=== PATIENT | male | born 1980 | race Two or more races ===

== ENCOUNTER 2018-02-06 07:30 | Inpatient (IN) | payer OTHER ==
[~2018-02-06] VITALS: Ht 193 cm; Wt 131.7 kg
[2018-02-06] VITALS (10 sets, daily range): BP systolic 114–152; BP diastolic 67–94
[~2018-02-06 07:30] MED LIST: ceFAZolin sod 2 GM in D5W 110 ML IVPB ONE
[2018-02-06] MEDS ORDERED: NKM (09:15)
[2018-02-06] MEDS ORDERED: LR 1000ml 1,000 ML IVLG SCH (09:40)
[2018-02-06] MEDS ORDERED: Metoclopramide 10mg/2ml Inj IVP PRN (09:45)
[2018-02-06] MEDS ORDERED: LORazepam Inj 2mg/ml 1ml IV PRN (09:45)
[2018-02-06] MEDS ORDERED: Labetalol 5mg/ml 20ml vial IV PRN (09:45)
[2018-02-06] MEDS ORDERED: Hydromorphone 0.5mg/0.5ml inj IVP PRN (09:45)
[2018-02-06] MEDS ORDERED: Ketorolac 30mg Inj IV PRN ×2 (09:45)
[2018-02-06] MEDS ORDERED: HYDROcodone/Acetamin 7.5/325 tab ORAL PRN ×3 (09:45→17:30)
[2018-02-06] MEDS ORDERED: Midazolam 2mg/2ml Inj IVP PRN (09:45)
[2018-02-06] MEDS ORDERED: fentaNYL 100 mcg/2 mL IV PRN (09:45)
[2018-02-06] MEDS ORDERED: oxyCODONE HCL/Acetaminophen 5/325mg ORAL PRN (09:45)
[2018-02-06] MEDS ORDERED: DiphenhydrAMINE 50mg/ml Inj IVP PRN (09:45)
[2018-02-06] MEDS ORDERED: Norco 5mg/325mg tab ORAL PRN ×2 (09:45→17:30)
[2018-02-06] MEDS ORDERED: Atropine Inj 1mg/10ml Syr IV PRN (09:45)
[2018-02-06] MEDS ORDERED: Acetaminophen (Non formulary) 100 ML IV ONE (09:45)
--- NOTE | 2018-02-06 09:45 | Anethesia Preoperative Eval ---
Anesthesia Pre-op PMH/ROS General Date of Evaluation: Feb 06, 2018 Time of Evaluation: 15:02 Anesthesiologist: Migel ASA Score: ASA 2 Mallampati Score Class I : Soft palate, uvula, fauces, pillars visible Class II: Soft palate, uvula, fauces visible Class III: Soft palate, base of uvula visible Class IV: Only hard plate visible Mallampati Classification: Class III Surgeon: Nery Diagnosis: Back Pain Surgical Procedure: L3-4, L4-5 Laminectomy, Foraminotomy, Discectomy Anesthesia History: none Family History: no anesthesia problems Allergies: Coded Allergies: Pork (Verified Allergy, Severe, 02/06/18) HIVES,DIARRHEA,FACIAL SWELLLING AND THROAT CLOSES UP AND VOMITING Medications: see eMAR Past Medical History Cardiovascular: Reports: HTN Pulmonary: Reports: other - Bronchitis Neurologic/Psychiatric: Reports: depression/anxiety Other: obesity - BMI 37 Anesthesia Pre-op Phys. Exam Physician Exam Last Vital Signs Date Time Temp Pulse Resp B/P (MAP) Pulse Ox O2 Delivery O2 Flow Rate FiO2 02/06/18 09:31 97.4 75 20 125/67 (86) 97 97.4 02/06/18 09:16 Room Air Constitutional: NAD Neurologic: CN 2-12 intact Cardiovascular: RRR Respiratory: CTA Gastrointestinal: S/NT/ND Airway Exam Mallampati Score: Class III MO: full ROM: full Teeth: intact Anesthesia Pre-op A/P Risk Assessment & Plan Assessment: ASA 2 Plan: GA, BIS, GlideScope Status Change Before Surgery: No Pre-Antibiotics Dru Grams Ancef IV Given Within 1 Hr of Incision: Yes Time Given: 11:51 Av Lainez MD Feb 06, 2018 09:45
--- NOTE | 2018-02-06 09:51 | Immediate Post-Op Evaluation ---
Immediate Post-Op Evalulation Immediate Post-Op Evalulation Procedure: L3-4, L4-5 Laminectomy, Foraminotomy, Discectomy Date of Evaluation: Feb 06, 2018 Time of Evaluation: 15:02 IV Fluids: 1000 LR Blood Products: 0 Estimated Blood Loss: 100 Urinary Output: 450 Blood Pressure Systolic: 148 Blood Pressure Diastolic: 92 Pulse Rate: 93 Respiratory Rate: 16 O2 Sat by Pulse Oximetry: 99 Temperature (Fahrenheit): 98.2 Pain Score (1-10): 3 Nausea: No Vomiting: No Complications 0 Patient Status: awake, reacts, patent, extubated, none Hydration Status: adequate Dru Grams Ancef IV Given Within 1 Hr of Incision: Yes Time Given: 11:51 Av Lainez MD Feb 06, 2018 09:51
[2018-02-06] MEDS ORDERED: Lidocaine 1% MPF 10mg/ml 5ml ONE (10:11)
[2018-02-06] MEDS ORDERED: Sodium Chloride 10ml vial INJ ONE ×2 (10:11→12:28)
[2018-02-06] MEDS ORDERED: Dexamethasone 4mg/ml vial ONE (10:11)
[2018-02-06] MEDS ORDERED: fentaNYL 100 mcg/2 mL IV ONE ×3 (10:12→14:01)
[2018-02-06] MEDS ORDERED: Lidocaine 1% Plain 30 ml INJ ONE ×2 (10:21→13:33)
--- NOTE | 2018-02-06 10:55 | Pre-Procedure Note/Attestation ---
Pre-Procedure Note/Attestation Complete Prior to Procedure Procedure Narrative: L345 Laminoforaminotomy and discectomy Indications for Procedure Pre-Operative Diagnosis: Spinal stenosis L345 Attestation I attest that I discussed the nature of the procedure; its benefits; risks and complications; and alternatives (and the risks and benefits of such alternatives ), prior to the procedure, with the patient (or the patient's legal support representative). I attest that, if there was a reasonable possibility of needing a blood transfusion, the patient (or the patient's legal support representative) was given the [facility] standardized written summary, pursuant to the Nikos Adeline Blood Safety Act ([place] Health and Safety Code # 1645, as amended). I attest that I re-evaluated the patient just prior to the surgery and that there has been no change in the patient's H&P, except as documented below: Scott Gabriel MD Feb 06, 2018 10:55
--- NOTE | 2018-02-06 11:05 | Brief Operative Note ---
Immediate Post Operative Note Operative Note Pre-op Diagnosis: Spinal stenosis L345 Procedure: L345 B laminoforaminotomy and discectomy Post-op Diagnosis: same as pre-op Findings: consistent w/pre-op dx studies Surgeon: edel [employer] Instructor: autumn rizzo Anesthesiologist: Danny Anesthesia: general Specimen: yes Complications: none Condition: stable Fluids: 1L Estimated Blood Loss: volume Drains: none Implant(s) used?: No Scott Gabriel MD Feb 06, 2018 11:05
[2018-02-06] MEDS ORDERED: Lidocaine 1% 10mg/ml/Epi 0.005mg/ml 30ml vial INJ ONE (11:28)
[2018-02-06] MEDS ORDERED: Thrombin 5000 units TOPIC ONE (11:28)
[2018-02-06] MEDS ORDERED: Vancomycin 1gm inj IVPB ONE (11:28)
[2018-02-06] MEDS ORDERED: Bacitracin 50000 Units Vial ONE (11:29)
[2018-02-06] MEDS ORDERED: Zemuron 50mg/5ml Inj IV ONE (11:30)
[2018-02-06] MEDS ORDERED: LR 1000ml ONE (11:30)
[2018-02-06] MEDS ORDERED: NS Irrig 1000ml ONE (11:30)
[2018-02-06] MEDS ORDERED: Propofol 1,000mg/ 100ml btl IV ONE (11:30)
[2018-02-06] MEDS ORDERED: Sterile Water Irrig 1000ml IRRIG ONE (11:30)
[2018-02-06] MEDS ORDERED: Gelfoam Absorbable 1gm powder pkt TOPIC ONE (13:57)
[2018-02-06] MEDS ORDERED: Neostigmine 1mg/ml 10ml Inj ONE (14:01)
[2018-02-06] MEDS ORDERED: Glycopyrrolate 0.2mg/ml 1ml Vial ONE (14:01)
[2018-02-06] MEDS ORDERED: Naloxone 0.4mg/ml Inj ONE (14:12)
[2018-02-06] MEDS ORDERED: traMADol 50mg tab ORAL PRN (14:15)
--- NOTE | 2018-02-06 16:00 | Diagnostic Imaging Report ---
. Indication: Back pain Comparison: None Findings: Single crosstable lateral view of the lumbar spine obtained fluoroscopically. Total fluoroscopic time 13.1 seconds. Images show the segmentation posterior to L5. IMPRESSION: Intraoperative imaging
[2018-02-06] MEDS: D5 1/2NS 1,000 ML IV SCH (17:23)
[2018-02-06] MEDS ORDERED: Milk of Magnesia 30ml Ud ORAL PRN (17:30)
[2018-02-06] MEDS ORDERED: HYDROmorphone 1mg/ml Carpuject SUBQ PRN (17:30)
[2018-02-06] MEDS ORDERED: Docusate 100mg cap ORAL SCH (18:00)
--- NOTE | 2018-02-06 19:00 | Operative Note - Dictated ---
DATE OF OPERATION: 02/06/2018 PREOPERATIVE DIAGNOSES: 1. Spinal stenosis, L3-4 and L4-5. 2. Broad-based disc protrusions, L3-4 right side and L4-5 central and bilateral. POSTOPERATIVE DIAGNOSES: 1. Spinal stenosis, L3-4 and L4-5. 2. Broad-based disc protrusions, L3-4 right side and L4-5 central and bilateral. 3. 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 OPERATION PERFORMED: 1. Right-sided hemilaminectomy at L3, L4, superior portion of L5. 2. Hemilaminectomy, left side L3, L4, L5. 3. Foraminotomy, L3-4 and L4-5 bilaterally. 4. Lysis of adhesions bilaterally, L3-4 and L4-5. 5. Microdiskectomy, right side, L3-4/L4-5. 6. Neurodiagnostic monitoring. 7. Use of fluoroscopy. 8. Use of operating microscope. INDICATIONS: The patient is a very pleasant gentleman with chronic mechanical back pain as well as radiculopathy in the lower extremities bilaterally. Conservative care had failed. Surgical intervention was recommended. The patient elected to proceed with surgery. INTRAOPERATIVE FINDINGS: 1. Hypermobility at the L3-4 and L4-5 levels. 2. Chronic inflammatory changes, L3-4 and L4-5. 3. Epidural lipomatosis, L3-4 and L4-5. RISK NOTE: The patient was explained in detail of risks and benefits of surgery to include, but not be limited to those of bleeding, infection, damage to nerves, vessels, tendons, anesthetic risk, allergic reaction, possible need for reoperation, possible need for fusion. The patient elected to proceed. OPERATIVE PROCEDURE IN DETAIL: The patient was taken to the operative suite. After general endotracheal anesthesia was obtained, [place] catheter was placed. The patient was positioned supine on to the [place] frame. All bony prominences were well padded. [place] were placed at L4-L5 and radiographically, this was confirmed. At this point, skin was infiltrated with Marcaine with epinephrine. Incision was made from L3 to L5, and subperiosteal dissection carried out bilaterally. Fluoroscopic confirmation of the L4-5 lamina was obtained. The left side was first addressed. Self-retaining retractors were put into place. Under microscopic visualization, hemilaminectomy was performed using high-speed drill of the L4 and superior portion of L5. Ligamentum flavum was removed in a piecemeal fashion. The dural sac was noted to be markedly scarified with extensive epidural lipomatosis as well as chronic inflammatory changes. The decompression was achieved using a combination of high-speed drill as well as curved curettes and Kerrison punches. Once satisfied with the laminotomy and foraminotomy on the left side, this procedure was identically performed on the right side as well. At this point, the retractor was moved and brought up to the L3-4 level. In an identical fashion, laminectomy on the left side of L3 and superior portion of L4 was performed. Ligamentum flavum was removed in a piecemeal fashion. Neural foraminotomy was performed. Attention was then turned to the right side at L3-4. In an identical fashion, hemilaminotomy was performed using high-speed drill, curved curettes, Kerrison punch. Ligamentum flavum was removed in a piecemeal fashion. The nerve root was gently mobilized medially. Disc space was identified and a small annulotomy was performed. The Elizabeth instrument was used to remove pieces of intradiscal fragments. Once satisfied with the decompression intradiscally, copious intradiscal irrigation was performed. Meticulous hemostasis was performed using bipolar copious irrigation. FloSeal was applied. Attention was then turned to the L4-L5 level, and right-sided reno-diskectomy was performed in a similar fashion, as was at the L3-4 level. Please note that extensive neovascularization and chronic inflammatory changes of the epidural space was noted, which required meticulous neurolysis, mobilization of nerve roots, and cauterization of the epidural veins. At this point, once satisfied with the decompressions, copious irrigation was performed. Valsalva was performed without CSF leak. Due to the patient's morbid obesity, a gram of vancomycin was placed deep to the fascia. A medium-sized Hemovac drain was also placed deep to the fascia. Fascia was repaired using #1 Vicryl, subcutaneous closure using 2-0 Vicryl, Dermabond was applied. Sterile dressing was applied. At the time of this dictation, the patient was awaiting extubation. Sponge and needle counts were correct. Scott Darleen Gabriel DR: APPLE JOB#: [id number] CC:
[2018-02-06] MEDS ORDERED: HYDROcodone/Acetamin 10/325 tab ORAL PRN (19:15)
[2018-02-06] MEDS ORDERED: Cyclobenzaprine 10mg Tab ORAL PRN (20:00)
[2018-02-06] MEDS ORDERED: Chloraseptic Spray 20mL Bottle ORAL PRN (20:30)
[2018-02-06] MEDS: ceFAZolin sod 1 GM in D5W 110 ML IV SCH (20:58)
[2018-02-06] MEDS: Tamsulosin 0.4mg cap ORAL SCH (20:58)
[2018-02-06] MEDS: HYDROmorphone 1mg/ml Carpuject SUBQ PRN (20:59)
[2018-02-07 00:18] VITALS: BP 118/68
[2018-02-07] MEDS: HYDROmorphone 1mg/ml Carpuject SUBQ PRN ×5 (00:18→21:12)
[2018-02-07] MEDS: D5 1/2NS 1,000 ML IV SCH ×2 (01:49→15:00)
--- NOTE | 2018-02-07 03:00 | Consultation ---
DATE OF CONSULTATION: 02/06/2018 CONSULTING PHYSICIAN: Wilfred Lopez M.D. REFERRING PHYSICIAN: Scott Gabriel M.D. REASON FOR CONSULTATION: Acute pain consult. DEAR DR. SCOTT GABRIEL: Thank you kindly for consulting me to evaluate and render an opinion as to how to proceed in the management of this patient's acute postoperative lumbar spine pain after a lumbar spine surgery today. The patient is a massively obese 37-year-old gentleman, who I saw at the bedside on your request. The patient complains of significant discomfort after his work-related injury and lumbar spine surgery today. I saw the patient at bedside. I performed detailed history and physical examination. I spent over 75 minutes in consultation with an additional 30 minutes in medical record review. I reviewed multiple records from today's date of surgery at [facility] starting with utilization review and surgical authorization by [facility] utilization review authorizing surgery as certified. Multiple records were reviewed including preoperative history and physical by Osmar Cox dated January 26, 2018 along with diagnostic testing and laboratory studies, 12-lead EKG. Multiple records were reviewed from today's date of surgery at [facility], dated February 06, 2018 including consent for surgical treatment, consent for anesthesia, consent for blood products, medication administration record, medication reconciliation order form, anesthesia record, pre-anesthesia and post-anesthesia evaluation record, PACU record, PACU orders, postoperative spine surgery orders, and postoperative surgery report by Dr. Gabriel, surgical invasive procedure check list, intraoperative nursing care plan of care, 24-hour medical/surgical flow sheet, guidelines for prophylactic antibiotics, guidelines for DVT prophylaxis. Further records reviewed include laboratory studies from January 26, 2018. PAST MEDICAL HISTORY: 1. Acute postoperative lumbar spine pain, status post lumbar spine surgery by Dr. Scott Gabriel in January 2018. 2. Work-related injury. 3. Massive obesity. PAST SURGICAL HISTORY: Left shoulder surgery in 2013. MEDICATIONS: At home, tramadol, Welches, Flexeril. SOCIAL HISTORY: The patient is accompanied at the bedside by his girlfriend and extensive family providing good social support. The patient quit tobacco over 5 years ago. The patient denies alcohol usage. ALLERGIES: Pork food causes anaphylaxis. No known drug allergies. FAMILY HISTORY: Hypertension, diabetes, asthma, obesity, coronary artery disease. REVIEW OF SYSTEMS: Per attending physician. PHYSICAL EXAMINATION: VITAL SIGNS: Age 37, height 6 feet 4 inches, weight 297 pounds, body-mass index 36. Afebrile, pulse 93, respirations 22, blood pressure 139/86, and oxygen saturation 97% on supplemental oxygen. HEENT: Nasal cannula oxygen in place. NEUROLOGIC: Moving all extremities x4, 5/5 dorsiflexion, 5/5 plantar flexion in bilateral lower extremities. BACK: Lumbar spine with significant pain with log-rolling. Hemovac drain holding suction. Straight leg raising and detailed neurologic exam deferred to Dr. Gabriel. CHEST: Barrel-chested. Bibasilar crackles likely secondary to postoperative atelectasis and preoperative obesity. ABDOMEN: Obese. Positive bowel sounds. Positive pannus. No rebound or guarding. GENITOURINARY: Deferred. DIAGNOSTIC TESTING: Shows 12-lead EKG with normal sinus rhythm, ventricular rate 57, no evidence for acute cardiac ischemia. Laboratory studies from January 26, 2018, shows glucose 99, sodium 138, potassium 4.1, chloride 100, bicarbonate 27, BUN 13, creatinine 0.9, calcium 9.7, phosphorus 3.9, total protein 7.5, albumin 4.5, AST 24, ALT 45, alkaline phosphatase 54, LDH 146, total bilirubin 0.7, magnesium 2.1, amylase 46. TSH 2.0. Glycosylated hemoglobin normal at 4.0. White count 6, hematocrit illegible, platelets 327,000. INR 1.1, PTT 29. IMPRESSION: 1. Acute postoperative lumbar spine pain, status post lumbar spine surgery by Dr. Scott Gabriel in January 2018. 2. Work-related injury. 3. Massive obesity. TREATMENT RECOMMENDATIONS: I have set up a treatment plan. The patient states that after his left shoulder surgery, he did tolerate hydrocodone with moderate efficacy. I will start him on a dose of Welches 10/325 one tablet orally every three hours p.r.n. for moderate pain. He has tolerated Dilaudid so far in the hospital without any adverse side effects such as nausea. Due to his extreme obesity and possibility for respiratory compromise with obstructive sleep apnea symptoms, I have ordered the subcutaneous route for breakthrough dose of Dilaudid 1 mg every three hours p.r.n. for severe breakthrough pain. I have ordered Flexeril 10 mg orally every 8 hours p.r.n. as a muscle relaxant agent. The patient does not appear to be anxious, so I am going to hold off on the class of benzodiazepines at this time to avoid the potentiation of respiratory depression, which may occur when already being on potent opioid agonist. I have ordered p.r.n. dose of Fioricet one tablet orally every 8 hours in case of any headache symptoms. I have asked nursing team to place Chloraseptic spray at the bedside in case of any sore throat complaints. In case the patient has any itching problems, I have ordered Benadryl 25 mg q.6 hours p.r.n. In case of any nausea symptoms, I have ordered Zofran 4 mg intravenously every 4 hours p.r.n. I will empirically place the patient on Protonix 40 mg nightly for GI ulcer prophylaxis. I have also ordered p.r.n. dose of Mylanta 30 mL q.6 hours in case of any GERD symptom exacerbation. I have ordered one-time dose of Flomax to help reduce the risk for urinary retention issues which may develop while resting in supine position after back surgery. The patient does seem to have borderline high blood pressure readings. This may be due to a blood pressure cuff being of the small size. I have added p.r.n. dose of clonidine 0.1 mg in case of systolic blood pressure greater than 160 [address] I will also place the patient on Colace as a stool softener. P.r.n. dose of milk of magnesia is available as a rescue laxative. I did encourage incentive spirometer usage to encourage good pulmonary toilet. This patient certainly is at risk for postoperative pneumonia and atelectasis with his history of smoking in the past along with his massive obesity. I will leave a prescription for Welches and Flexeril for outpatient usage. Wilfred Lopez M.D. DR: Pauline JOB#: [id number] CC:
[2018-02-07 04:02] VITALS: BP 125/72
[2018-02-07] MEDS: ceFAZolin sod 1 GM in D5W 110 ML IV SCH ×2 (04:03→11:46)
[2018-02-07 07:48] LABS: BASOPHILS % (AUTO) 0.3 % (0.0-2.0); EOSINOPHILS % (AUTO) 0.1 % (0.0-3.0); HEMATOCRIT 37.3 % (42.0-52.0); HEMOGLOBIN 13.4 G/DL (14.2-18.0); LYMPHOCYTES % (AUTO) 8.4 % (20.0-45.0); MEAN CORPUSCULAR VOLUME 83 FL (80-99); NEUTROPHILS % (AUTO) 84.2 % (45.0-75.0); PLATELET COUNT 317 K/UL (150-450); RED BLOOD COUNT 4.48 M/UL (4.70-6.10); RED CELL DISTRIBUTION WIDTH 11.2 % (11.6-14.8); WHITE BLOOD COUNT 12.9 K/UL (4.8-10.8)
[2018-02-07 08:00] VITALS: BP 127/71
[2018-02-07] MEDS: Docusate 100mg/10ml Liq NG SCH ×2 (08:04→18:47)
--- NOTE | 2018-02-07 08:08 | 48 Hour Post Anesthesia Eval ---
Post Anesthesia Evaluation Procedure: L3-4, L4-5 Laminectomy, Foraminotomy, Discectomy Date of Evaluation: Feb 07, 2018 Time of Evaluation: 06:50 Blood Pressure Systolic: 125 0: 72 Pulse Rate: 87 Respiratory Rate: 16 Temperature (Fahrenheit): 97.4 O2 Sat by Pulse Oximetry: 97 Airway: patent Nausea: No Vomiting: No Pain Intensity: 0 Hydration Status: adequate Cardiopulmonary Status: at baseline Mental Status/LOC: patient returned to baseline Post-Anesthesia Complications: 0 Follow-up care needed: N/A - further care as per primary team Olivia Mora MD Feb 07, 2018 08:08
[2018-02-07] MEDS ORDERED: D5 1/2NS 1000ml IV ONE (08:49)
[2018-02-07 12:00] VITALS: BP 124/76
--- NOTE | 2018-02-07 15:02 | History and Physical ---
History of Present Illness General Date patient seen: Feb 07, 2018 Present Illness HPI 37 year old male with hx of depression and anxiety admitted with dx of Spinal stenosis L3-4-5 and underwent L3-4-5 B laminoforaminotomy and discectomy. Post operatively pt is admitted to surgical floor for further management. Allergies: Coded Allergies: Pork (Verified Allergy, Severe, 02/06/18) HIVES,DIARRHEA,FACIAL SWELLLING AND THROAT CLOSES UP AND VOMITING Medication History Scheduled No Known Medications* (NKM - No Known Medications*), 0 ., (Reported) Patient History Healthcare decision maker CHRISTOPHER MARTINEZ-GIRLFRIEND Resuscitation status Full Code Advanced Directive on File Past Medical/Surgical History Past Medical/Surgical History: (1) Spinal stenosis Review of Systems All Other Systems: negative except mentioned in HPI Physical Exam General Appearance: WD/WN Lines, tubes and drains: peripheral HEENT: normocephalic, atraumatic Neck: non-tender, normal alignment, supple Respiratory/Chest: chest wall non-tender, normal breath sounds Breasts: no masses Cardiovascular/Chest: normal peripheral pulses Abdomen: normal bowel sounds, soft Genitourinary/Rectal: normal genital exam Extremities: normal range of motion Last 24 Hour Vital Signs Date Time Temp Pulse Resp B/P (MAP) Pulse Ox O2 Delivery O2 Flow Rate FiO2 02/07/18 12:00 98.5 88 20 124/76 (92) 98 98.5 02/07/18 08:46 Room Air 02/07/18 08:08 207.3 87 16 97 02/07/18 08:00 97.8 82 20 127/71 (89) 98 97.8 02/07/18 04:02 97.4 87 16 125/72 (89) 97 97.4 02/07/18 00:18 97.4 90 20 118/68 (85) 96 97.4 02/06/18 21:00 Room Air 02/06/18 20:26 97.3 95 18 114/70 (85) 96 97.3 02/06/18 18:03 98.5 02/06/18 17:33 98.5 02/06/18 17:09 Nasal Cannula 3.0 02/06/18 16:02 98.5 02/06/18 16:00 98.5 93 22 139/86 97 Nasal Cannula 3 98.5 02/06/18 15:45 84 15 138/88 97 Nasal Cannula 3 02/06/18 15:32 80 16 129/91 97 Nasal Cannula 3 02/06/18 15:32 98.3 02/06/18 15:25 77 18 137/94 97 Nasal Cannula 3 02/06/18 15:10 91 13 148/83 98 Simple Mask 6.0 02/06/18 15:00 84 13 152/81 98 Simple Mask 6.0 Intake and Output 02/06/18 02/07/18 19:00 07:00 Intake Total 1700 ml 860 ml Output Total 640 ml Balance 1060 ml 860 ml Intake Oral 400 ml 860 ml IV Total 1300 ml Output Urine Total 450 ml Stool Total 0 ml Drainage Total 90 ml Estimated Blood Loss 100 ml # Voids 2 Laboratory Tests Test 02/07/18 06:50 White Blood Count 12.9 K/UL (4.8-10.8) H Red Blood Count 4.48 M/UL (4.70-6.10) L Hemoglobin 13.4 G/DL (14.2-18.0) L Hematocrit 37.3 % (42.0-52.0) L Mean Corpuscular Volume 83 FL (80-99) Mean Corpuscular Hemoglobin 30.0 PG (27.0-31.0) Mean Corpuscular Hemoglobin Concent 36.0 G/DL (32.0-36.0) Red Cell Distribution Width 11.2 % (11.6-14.8) L Platelet Count 317 K/UL (150-450) Mean Platelet Volume 6.5 FL (6.5-10.1) Neutrophils (%) (Auto) 84.2 % (45.0-75.0) H Lymphocytes (%) (Auto) 8.4 % (20.0-45.0) L Monocytes (%) (Auto) 7.0 % (1.0-10.0) Eosinophils (%) (Auto) 0.1 % (0.0-3.0) Basophils (%) (Auto) 0.3 % (0.0-2.0) Height (Feet): 6 Height (Inches): 4.00 Weight (Pounds): 293 Medications Current Medications Medications (Trade) Dose Ordered Sig/Leyla Route PRN Reason Start Time Stop Time Status Last Admin Dose Admin Acetaminophen (Tylenol) 650 mg Q4H PRN ORAL headache or temp>101 02/06/18 17:30 03/08/18 17:29 Acetaminophen/ Butalbital/ Caffeine (Fioricet) 1 tab Q8H PRN ORAL headache 02/06/18 19:15 03/08/18 19:14 Acetaminophen/ Hydrocodone Bitart ([place] 10/325) 1 tab Q3H PRN ORAL Moderate Pain (Pain Scale 4-6) 02/06/18 19:15 02/13/18 19:14 Al Hydroxide/Mg Hydroxide (Mylanta) 30 ml Q6H PRN ORAL gerd/dyspepsia 02/06/18 19:15 03/08/18 19:14 02/07/18 08:04 Clonidine HCl (Catapres Tab) 0.1 mg Q8HR PRN ORAL SBP > 160mmHg 02/06/18 19:15 03/08/18 19:14 Cyclobenzaprine HCl (Flexeril) 10 mg Q8H PRN ORAL Muscle Spasm 02/06/18 20:00 03/08/18 19:59 Dextrose/Sodium Chloride 1,000 ml @ 100 mls/hr Q10H IV 02/06/18 17:30 03/08/18 17:29 02/07/18 01:49 Diphenhydramine HCl (Benadryl) 25 mg Q6H PRN ORAL Itching 02/06/18 19:15 03/08/18 19:14 Docusate Sodium (Colace) 100 mg TWICE A DAY NG 02/07/18 09:00 03/09/18 08:59 02/07/18 08:04 Hydromorphone HCl (Dilaudid) 1 mg Q3H PRN SUBQ Severe Breakthru Pain (>7) 02/06/18 19:15 02/13/18 19:14 02/07/18 11:46 Magnesium Hydroxide (Mom) 30 ml QIDPRN PRN ORAL Constipation 02/06/18 17:30 03/08/18 17:29 Ondansetron HCl (Zofran) 4 mg Q4H PRN IVP Nausea & Vomiting 02/06/18 19:15 03/08/18 19:14 Pantoprazole (Protonix) 40 mg BEDTIME ORAL 02/06/18 21:00 03/08/18 20:59 02/06/18 20:58 Phenol/Menthol (Chloraseptic) 1 spray Q3H PRN ORAL sore throat 02/06/18 20:30 03/08/18 20:29 Tamsulosin HCl (Flomax) 0.4 mg BEDTIME ORAL 02/06/18 21:00 03/08/18 20:59 02/06/18 20:58 Temazepam (Restoril) 15 mg HSPRN PRN ORAL Insomnia 02/06/18 21:00 02/13/18 20:59 02/06/18 23:36 Assessment/Plan Problem List: (1) lamino-foraminotomy (2) Spinal stenosis L3 4 5 (3) Depression ICD Codes: F32.9 - Major depressive disorder, single episode, unspecified SNOMED: 49312179 (4) Anxiety ICD Codes: F41.9 - Anxiety disorder, unspecified SNOMED: 54897698 Assessment/Plan pain management symptomatic treatment dvt prophylaxis Sushil Billingsley MD Feb 07, 2018 15:02
[2018-02-07] MEDS ORDERED: HYDROcodone/Acetamin 10/325 tab ORAL PRN ×2 (15:15→16:15)
[2018-02-07 16:42] VITALS: BP 124/76
--- NOTE | 2018-02-07 18:05 | Orthopedic Spine Progress Note ---
Ortho Spine - Progress Note Subjective Symptoms: c/o post-op back pain, improved - as compared to pre-op Objective Vital Signs: Last 24 Hour Vital Signs Date Time Temp Pulse Resp B/P (MAP) Pulse Ox O2 Delivery O2 Flow Rate FiO2 02/07/18 16:42 98.5 88 20 124/76 (92) 98 98.5 02/07/18 15:52 98.5 02/07/18 12:00 98.5 88 20 124/76 (92) 98 98.5 02/07/18 08:46 Room Air 02/07/18 08:08 207.3 87 16 97 02/07/18 08:00 97.8 82 20 127/71 (89) 98 97.8 02/07/18 04:02 97.4 87 16 125/72 (89) 97 97.4 02/07/18 00:18 97.4 90 20 118/68 (85) 96 97.4 02/06/18 21:00 Room Air 02/06/18 20:26 97.3 95 18 114/70 (85) 96 97.3 I&O: Intake and Output 02/06/18 02/07/18 19:00 07:00 Intake Total 1700 ml 860 ml Output Total 640 ml Balance 1060 ml 860 ml Intake Oral 400 ml 860 ml IV Total 1300 ml Output Urine Total 450 ml Stool Total 0 ml Drainage Total 90 ml Estimated Blood Loss 100 ml # Voids 2 Wound: clean, intact Drains: hemovac Neuro Status: normal Assessment Procedure Performed: L345 B laminoforaminotomy and discectomy Plan Plan: PT, pain management, continue drain Scott Gabriel MD Feb 07, 2018 18:05
[2018-02-07 20:00] VITALS: BP 103/66
--- NOTE | 2018-02-07 21:00 | Progress Note ---
DATE: 02/07/2018 ACUTE PAIN MANAGEMENT PHYSICIAN PROGRESS NOTE MEDICATIONS: Medication administration record reviewed. Medications include Restoril, Flomax, Chloraseptic, Protonix, Zofran, milk of magnesia, Dilaudid, [place], Colace, Benadryl, Flexeril, Catapres, Mylanta, Fioricet, and Tylenol. LABORATORY STUDIES: From this morning, February 07, 2018, shows white count 13, hematocrit 37, platelets 317,000. VITAL SIGNS: Within normal limits. Afebrile. Pulse 88, respirations 20, blood pressure 124/76, oxygen saturation 98% on room air. I saw the patient at bedside with his girlfriend. I discussed the case with the nurse, DEB Hardy. The patient is making poor progress with physical therapy. He has only been able to ambulate out of bed to the restroom and to the room doorway. He has been frequently requesting doses of pain medication, primarily subcutaneous Dilaudid. I will trial him on [place] 10/325, now 1 tablet. I will make available 2 tablets as well if the 1 tablet is inadequate. The patient put out 90 mL via the indwelling lumbar spine drain catheter overnight. I will continue the catheter in the for now with Dr. Gabriel to follow up. I did contact the patient's insurance writer from [employer], to update that the patient did have surgery yesterday and is starting his rehabilitation. He should advance the diet as tolerated. The patient has been educated to aggressively use incentive spirometer. DVT prophylaxis will continue with sequential compression pneumatic devices. I did leave for a prescription for [place] and Flexeril for outpatient usage. Wilfred Lopez M.D. DR: Pauline JOB#: [id number] CC:
[2018-02-07] MEDS: Tamsulosin 0.4mg cap ORAL SCH (21:12)
[2018-02-08] VITALS: BP 111/66
[2018-02-08] MEDS: HYDROmorphone 1mg/ml Carpuject SUBQ PRN ×4 (00:17→21:55)
[2018-02-08] MEDS: D5 1/2NS 1,000 ML IV SCH (00:17)
[2018-02-08 04:00] VITALS: BP 115/63
[2018-02-08 08:00] VITALS: BP 100/75
[2018-02-08] MEDS ORDERED: HYDROcodone/Acetamin 10/325 tab ORAL SCH (08:10)
[2018-02-08] MEDS ORDERED: Milk of Magnesia 30ml Ud ORAL PRN (08:15)
[2018-02-08] MEDS: Docusate 100mg/10ml Liq NG SCH ×2 (08:43→17:38)
--- NOTE | 2018-02-08 10:50 | Pulmonology Progress Note ---
Assessment/Plan Problems: (1) lamino-foraminotomy (2) Spinal stenosis L3 4 5 (3) Depression (4) Anxiety Assessment/Plan improving symptomatic treatment pain management doing better Subjective ROS Limited/Unobtainable: No Constitutional: Reports: no symptoms HEENT: Repors: no symptoms Respiratory: Reports: no symptoms, wheezing Allergies: Coded Allergies: Pork (Verified Allergy, Severe, 02/06/18) HIVES,DIARRHEA,FACIAL SWELLLING AND THROAT CLOSES UP AND VOMITING Objective Last 24 Hour Vital Signs Date Time Temp Pulse Resp B/P (MAP) Pulse Ox O2 Delivery O2 Flow Rate FiO2 02/08/18 09:42 98.9 02/08/18 09:00 Room Air 02/08/18 08:00 98.9 88 18 100/75 (83) 96 98.9 02/08/18 04:00 98.2 89 19 115/63 (80) 97 98.2 02/08/18 00:00 98.4 84 20 111/66 (81) 97 98.4 02/07/18 21:00 Room Air 02/07/18 20:00 97.3 100 20 103/66 (78) 96 97.3 02/07/18 16:42 98.5 88 20 124/76 (92) 98 98.5 02/07/18 15:52 98.5 02/07/18 12:00 98.5 88 20 124/76 (92) 98 98.5 Intake and Output 02/07/18 02/08/18 19:00 07:00 Intake Total 1350 ml 1580 ml Output Total 40 ml Balance 1310 ml 1580 ml Intake Oral 1250 ml 780 ml IV Total 100 ml 800 ml Drainage Total 40 ml # Voids 3 3 General Appearance: WD/WN HEENT: normocephalic, atraumatic Respiratory/Chest: chest wall non-tender, lungs clear, chest wall tender Cardiovascular: normal rate Abdomen: normal bowel sounds, soft, non tender Genitourinary: normal external genitalia Extremities: no cyanosis Skin: no rash Microbiology Date/Time Source Procedure Growth Status 02/06/18 09:50 Nasal Nares MRSA Culture - Final NO METHICILLIN RESISTANT STAPH AUREUS... Complete Current Medications Medications (Trade) Dose Ordered Sig/Leyla Route PRN Reason Start Time Stop Time Status Last Admin Dose Admin Acetaminophen/ Butalbital/ Caffeine (Fioricet) 1 tab Q8H PRN ORAL headache 02/06/18 19:15 03/08/18 19:14 Acetaminophen/ Hydrocodone Bitart ([place] 10/325) 1 tab Q3H PRN ORAL Mild Pain (Pain 1-3) / fever 02/07/18 16:15 02/14/18 16:14 Acetaminophen/ Hydrocodone Bitart ([place] 10/325) 2 tab Q4H PRN ORAL Moderate Pain (Pain Scale 4-6) 02/08/18 11:15 02/15/18 11:14 Al Hydroxide/Mg Hydroxide (Mylanta) 30 ml Q6H PRN ORAL gerd/dyspepsia 02/06/18 19:15 03/08/18 19:14 02/07/18 22:02 Clonidine HCl (Catapres Tab) 0.1 mg Q8HR PRN ORAL SBP > 160mmHg 02/06/18 19:15 03/08/18 19:14 Cyclobenzaprine HCl (Flexeril) 10 mg Q8H PRN ORAL Muscle Spasm 02/06/18 20:00 03/08/18 19:59 02/08/18 10:20 Diphenhydramine HCl (Benadryl) 25 mg Q6H PRN ORAL Itching 02/06/18 19:15 03/08/18 19:14 Docusate Sodium (Colace) 100 mg TWICE A DAY NG 02/07/18 09:00 03/09/18 08:59 02/08/18 08:43 Hydromorphone HCl (Dilaudid) 1 mg Q3H PRN SUBQ Severe Breakthru Pain (>7) 02/06/18 19:15 02/13/18 19:14 02/08/18 06:23 Magnesium Hydroxide (Mom) 30 ml DAILYPRN PRN ORAL Constipation 02/08/18 08:15 03/10/18 08:14 Magnesium Citrate (Citrate Of Magnesia) 300 ml ONCE ORAL 02/08/18 12:00 02/08/18 13:00 Ondansetron HCl (Zofran) 4 mg Q4H PRN IVP Nausea & Vomiting 02/06/18 19:15 03/08/18 19:14 Pantoprazole (Protonix) 40 mg BEDTIME ORAL 02/06/18 21:00 03/08/18 20:59 02/07/18 21:12 Phenol/Menthol (Chloraseptic) 1 spray Q3H PRN ORAL sore throat 02/06/18 20:30 03/08/18 20:29 Sushil Billingsley MD Feb 08, 2018 10:50
[2018-02-08 12:00] VITALS: BP 118/86
[2018-02-08] MEDS ORDERED: Magnesium Citrate Liq Btl ORAL SCH (12:00)
[2018-02-08] MEDS: HYDROcodone/Acetamin 10/325 tab ORAL PRN ×3 (13:27→17:47)
--- NOTE | 2018-02-08 14:45 | Progress Note ---
DATE: 02/08/2018 ACUTE PAIN MANAGEMENT PHYSICIAN PROGRESS NOTE MEDICATIONS: Medication administration record reviewed. Medications include Chloraseptic spray, Protonix, Zofran, milk of magnesia, magnesium citrate, Dilaudid, [place], Colace, Benadryl, Flexeril, Catapres, Mylanta, and Fioricet. LABORATORY STUDIES: Laboratory studies from yesterday morning February 07, 2018 shows white count 13, hematocrit 37, and platelets 317. OBJECTIVE: VITAL SIGNS: Afebrile, pulse 89, respirations 19, blood pressure 115/73, and oxygen saturation 97% on room air. I saw the patient at the bedside with his girlfriend. I discussed the case with the nurse RN, Hayley and the surgeon, Dr. Scott Gabriel. I also spoke with the physical therapist. The patient did rather poorly with physical therapy training yesterday. He only ambulated approximately 15 feet. The patient has been complaining of considerable discomfort moving in and out of bed. He has been able to log roll in bed. I encouraged more aggressive and frequent dosing of the oral hydrocodone tablets, which he has taken two at a time. We also will continue with the subcutaneous Dilaudid injections for now to help him mobilize out of bed more frequently. Physical therapy training will resume this morning and we will see if the patient makes better progress. The patient had excellent social support with his girlfriend, who also will be attending to the patient's needs and assisting with activities of daily living at home. The patient denies any shortness of breath or chest pain. The patient has been advancing his diet. The patient does admit to chronic constipation. I have recommended the patient use milk of magnesia and magnesium citrate when he returns home. I have asked the nurse to dispense the medications for home usage. The output from the indwelling lumbar spine drain catheter overnight was 40 mL. The patient was turned to the right lateral decubitus position. I examined the lumbar spine dressing, which showed the incision line clean and dry with DuraBond Sealant intact. With the Hemovac drain taken off of suction and end-expiration, I personally removed the indwelling lumbar spine drain catheter. The tip was intact. Alcohol swab has been applied generously to the drain hole site along with the incision line. A sterile 4 x 4 gauze was then applied over the drain hole site and incision line, followed by a 6 x 6 island bordered gauze dressing. There were no complications. Wilfred Lopez M.D. DR: CARA JOB#: [id number] CC:
[2018-02-08 16:00] VITALS: BP 127/61
[2018-02-08 20:00] VITALS: BP 138/90
[2018-02-09] VITALS: BP 124/77
[2018-02-09 04:00] VITALS: BP 107/74
[2018-02-09] MEDS: HYDROcodone/Acetamin 10/325 tab ORAL PRN (04:25)
[2018-02-09 06:04] VITALS: BP 107/74
--- NOTE | 2018-02-09 07:45 | Progress Note ---
DATE: 02/09/2018 ACUTE PAIN MANAGEMENT PHYSICIAN PROGRESS NOTE MEDICATIONS: Medication administration record reviewed. Medications include Fioricet, Mylanta, Catapres, Flexeril, Benadryl, Colace, [place], Dilaudid, milk of magnesia, Zofran, Protonix, and Chloraseptic spray. LABORATORY STUDIES: No interval laboratory studies. OBJECTIVE: VITAL SIGNS: Afebrile, pulse 68, respirations 22, blood pressure 107/74, and oxygen saturation 98% on room air. I saw the patient at the bedside with his girlfriend. I discussed the case with the charge nurse, DEB, Romy along with the surgeon, Dr. Scott Gabriel. The patient's pain levels have slowly improved somewhat. He has been reluctant to ambulate much. His excuse is that he has been instructed by physical therapy not to ambulate in the hallways with the current front wheel walker, which is too short for his 6 feet 4 inch frame. The charge nurse, Romy will be working aggressively with the DME provider to dispense a tall walker for this patient. The patient is passing flatus and denies any nausea symptoms. He was dispensed milk of magnesia and magnesium citrate for home usage. The patient continued to alternate doses of oral [place] with subcutaneous Dilaudid. At this time, the nurse, Romy, will also contact the outpatient pharmacy to try to fill this prescription for P[place]eney and Flexeril, which I left for outpatient usage. I would hope that once the correctly sized front wheel walker arrives, the patient will be able to ambulate better and be able to discharge home per surgeon, Dr. Gabriel's suggestion. Wilfred Lopez M.D. DR: GAYLE JOB#: [id number] CC:
[2018-02-09] MEDS: Docusate 100mg/10ml Liq NG SCH (07:47)
[2018-02-09] MEDS: HYDROmorphone 1mg/ml Carpuject SUBQ PRN ×2 (07:52→11:17)
[2018-02-09 08:15] VITALS: BP 146/90
--- NOTE | 2018-02-09 08:47 | Orthopedic Spine Progress Note ---
Ortho Spine - Progress Note Subjective Symptoms: c/o post-op back pain, improved - as compared to pre-op Objective Vital Signs: Last 24 Hour Vital Signs Date Time Temp Pulse Resp B/P (MAP) Pulse Ox O2 Delivery O2 Flow Rate FiO2 02/09/18 08:22 98.1 02/09/18 08:19 Room Air 02/09/18 08:15 98.5 82 22 146/90 (108) 98 98.5 02/09/18 07:52 98.1 02/09/18 06:04 98.1 68 22 107/74 (85) 98 98.1 02/09/18 05:24 97.5 02/09/18 04:25 97.5 02/09/18 00:00 97.5 92 24 124/77 (93) 98 97.5 02/08/18 21:55 98.2 02/08/18 21:00 Room Air 02/08/18 20:00 97.9 94 18 138/90 (106) 95 97.9 02/08/18 16:00 98.2 85 19 127/61 (83) 97 98.2 02/08/18 12:00 97.8 87 19 118/86 (97) 97 97.8 02/08/18 09:42 98.9 02/08/18 09:00 Room Air I&O: Intake and Output 02/08/18 02/09/18 19:00 07:00 Intake Total 500 ml 840 ml Output Total 1 ml 803 ml Balance 499 ml 37 ml Intake Oral 500 ml 840 ml Output Urine Total 803 ml Stool Total 1 ml # Voids 5 Wound: clean, intact Drains: none Neuro Status: normal Assessment Procedure Performed: L345 B laminoforaminotomy and discectomy Plan Plan: PT, pain management, discharge plan Scott Gabriel MD Feb 09, 2018 08:47
[2018-02-09] MEDS ORDERED: CYCLOBENZAPRINE10 MG ORAL (11:03)
[2018-02-09] MEDS ORDERED: NORCO 10-325 T1 EACH ORAL (11:03)
[2018-02-09] MEDS ORDERED: D5 1/2NS 1000ml IV ONE (11:56)
--- NOTE | 2018-02-09 12:00 | Pulmonology Progress Note ---
Assessment/Plan Problems: (1) lamino-foraminotomy (2) Spinal stenosis L3 4 5 (3) Depression (4) Anxiety Assessment/Plan improving symptomatic treatment pain management doing better Subjective ROS Limited/Unobtainable: No Constitutional: Reports: no symptoms HEENT: Repors: no symptoms Respiratory: Reports: no symptoms Allergies: Coded Allergies: Pork (Verified Allergy, Severe, 02/06/18) HIVES,DIARRHEA,FACIAL SWELLLING AND THROAT CLOSES UP AND VOMITING Objective Last 24 Hour Vital Signs Date Time Temp Pulse Resp B/P (MAP) Pulse Ox O2 Delivery O2 Flow Rate FiO2 02/09/18 11:47 98.1 02/09/18 11:17 98.1 02/09/18 08:19 Room Air 02/09/18 08:15 98.5 82 22 146/90 (108) 98 98.5 02/09/18 07:52 98.1 02/09/18 06:04 98.1 68 22 107/74 (85) 98 98.1 02/09/18 05:24 97.5 02/09/18 04:25 97.5 02/09/18 00:00 97.5 92 24 124/77 (93) 98 97.5 02/08/18 21:55 98.2 02/08/18 21:00 Room Air 02/08/18 20:00 97.9 94 18 138/90 (106) 95 97.9 02/08/18 16:00 98.2 85 19 127/61 (83) 97 98.2 02/08/18 12:00 97.8 87 19 118/86 (97) 97 97.8 Intake and Output 02/08/18 02/09/18 19:00 07:00 Intake Total 500 ml 840 ml Output Total 1 ml 803 ml Balance 499 ml 37 ml Intake Oral 500 ml 840 ml Output Urine Total 803 ml Stool Total 1 ml # Voids 5 General Appearance: WD/WN HEENT: normocephalic, atraumatic Respiratory/Chest: chest wall non-tender, lungs clear Cardiovascular: normal peripheral pulses, normal rate Abdomen: normal bowel sounds, soft, non tender Extremities: no cyanosis Skin: no lesions Neurologic/Psychiatric: second cutter II-XII grossly normal Sushil Billingsley MD Feb 09, 2018 12:00
--- NOTE | 2018-02-12 12:53 | Discharge Summary ---
Discharge Summary Hospital Course Date of Admission Feb 06, 2018 at 08:27 Date of Discharge Feb 09, 2018 at 11:57 Admitting Diagnosis spinal stenosis with broad-based disc protrusions, L3-4 right side and L4-5 central and bilateral. Reason for Hospitalization: elective surgery HPI Anup Cameron is a 37 year old male who was admitted on Feb 06, 2018 at 08:27 for spinal stenosis with broad-based disc protrusions, L3-4 right side and L4-5 central and bilateral. Patient was admitted for elective surgery. Consultations dr Billingsley IM Procedures s/p 02/06/[address] Gabriel 1. Right-sided hemilaminectomy at L3, L4, superior portion of L5. 2. Hemilaminectomy, left side L3, L4, L5. 3. Foraminotomy, L3-4 and L4-5 bilaterally. 4. Lysis of adhesions bilaterally, L3-4 and L4-5. 5. Microdiskectomy, right side, L3-4/L4-5. 6. Neurodiagnostic monitoring. 7. Use of fluoroscopy. 8. Use of operating microscope. Hospital Course s/p surgery course of recovery uneventful neurovascularly intact dressing C/D/I pain management addressed as per pain specialist recommendations, pain controlled ambulated with PT, fall precautions maintained IS while in the bed SCD for mechanical prophylaxis for DVT GI prophylaxis initially IVF, started on diet as tolerated a/emetic prn able to tolerate diet vodied freely bowle regimen instituted dc instructions provided cleared for dc home outpt fup with surgeon as advised FINAL DIAGNOSES 1. Spinal stenosis, L3-4 and L4-5. 2. Broad-based disc protrusions, L3-4 right side and L4-5 central and bilateral. 3. 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 4. s/p L3-4-5 bilateral laminoforaminotomy and discectomy 5. Work related injury 6. Obesity Discharge Medications Continued Medications: Cyclobenzaprine Hcl* (Flexeril*) 10 Mg Tablet 10 MG ORAL BID PRN for Muscle Spasm, TAB (This prescription has been renewed) Hydrocodone Bit/Acetaminophen 10-325* ([place] 10-325*) 1 Each Tablet 1 TAB ORAL Q4H PRN for For Pain, TAB 0 Refills (This prescription has been renewed) PRN PAIN Discharge Condition Upon Discharge: stable Discharge Disposition Patient was discharged to Home () Discharge Instructions Discharge Instructions Special Instructions I have been assigned to complete a D/C Summary on this account. I was not involved in the patient management Oriana Kerr NP Feb 12, 2018 12:53
== END 2018-02-09 11:57 | disposition home or self-care (01) | DRG 520 ==
LOC: SDSOVERFLO 08:27 → 3E 15:51
DX: M48.061 Spinal stenosis, lumbar region without neurogenic claudication (principal); M51.26 Other intervertebral disc displacement, lumbar region; E66.01 Morbid (severe) obesity due to excess calories; Z68.35 Body mass index [BMI] 35.0-35.9, adult; E88.2 Lipomatosis, not elsewhere classified; G89.18 Other acute postprocedural pain; F32.9 Major depressive disorder, single episode, unspecified; F41.9 Anxiety disorder, unspecified
CPT/HCPCS: 36415; 72020; 76000; 85025; 86850; 86900; 86901; 87081; 94003; 94150; J2405; J2710